=== PATIENT | male | born 1955 | race Caucasian/White ===

== ENCOUNTER → 2019-01-21 | Outpatient (CLI) | payer OTHER | LOC: M.RAD 09:22 | DX: R05 Cough (principal); I10 Essential (primary) hypertension; M19.90 Unspecified osteoarthritis, unspecified site ==

== ENCOUNTER → 2019-05-30 | Outpatient (CLI) | payer OTHER | LOC: M.ULTRA 07:09 | DX: N28.1 Cyst of kidney, acquired (principal); I10 Essential (primary) hypertension ==